=== PATIENT | male | born 1965 | race Caucasian/White ===

== ENCOUNTER 2021-02-12 21:31 | Emergency (ER) | payer SELFPAY ==
[~2021-02-12 21:31] MED LIST: AFRIN NAS; FLEXERIL10 MG PO; KEFLEX500 MG PO; LISINOPRIL10 MG PO; MOTRIN400 MG PO; MS CONTIN60 MG PO; NASONEX0.05 MG/AC NAS; PERCOCET 325 MG1 TAB PO; PREDNICOT20 MG PO; SEPTDS PO; ZOVIRAX400 MG PO
[2021-02-12 22:08] LABS: ABG BASE EXCESS -16.7 mmol/L (-2.0-2.0); ARTERIAL BLOOD GAS PO2 83.2 (80-90)
[2021-02-12 22:08] LABS: HEMATOCRIT 42.4 % (42.0-52.0); MEAN CELL VOLUME 101.7 fl (80.0-94.0); MEAN CORPUSCULAR HGB 30.2 pg (27.0-31.0); MEAN CORPUSCULAR HGB CONC 29.7 g/dl (33.0-37.0); MEAN PLATELET VOLUME 10.4 fl (9.6-12.3); PLATELET COUNT AUTOMATED 243 10*3/uL (130-400); RED BLOOD COUNT 4.17 10*6/uL (4.50-5.90); RED CELL DISTRI WIDTH 13.9 % (0-14.5)
[2021-02-12 22:21] LABS: ARTERIAL BLOOD GAS PH 7.032 (7.35-7.45)
[2021-02-12 22:27] LABS: ALBUMIN 3.3 gm/dl (3.1-4.5); CREATININE 3.37 mg/dL (0.70-1.30); TOTAL PROTEIN 6.4 gm/dL (6.4-8.2)
[2021-02-12 22:34] LABS: TROPONIN I 0.079 ng/ml (<0.045)
[2021-02-12 22:43] LABS: BASOPHILS 1 % (0-1); BURR CELLS FEW; PLATELET SUFFICIENCY NORMAL (NORMAL); TOTAL CELLS COUNTED 100 #CELLS
[2021-02-12 22:45] LABS: OVALOCYTES FEW; SCHISTOCYTES FEW
== END 2021-02-12 22:30 ==
LOC: ED 21:31
PROVIDERS: Emergency Medicine
DX: I46.9 Cardiac arrest, cause unspecified (principal); Z79.2 Long term (current) use of antibiotics; Z79.899 Other long term (current) drug therapy; Z98.890 Other specified postprocedural states